=== PATIENT | male | born 1985 | race Caucasian/White ===

== ENCOUNTER 2016-09-23 11:28 | Outpatient (CLI) ==
[2015-12-11 17:59] VITALS: BMI 32.5
== END 2016-09-23 11:29 | disposition home or self-care (01) ==
LOC: LAB 11:28
DX: Z52.001 Unspecified donor, stem cells (principal)
CPT/HCPCS: 36415

== ENCOUNTER 2018-03-16 07:33 | Outpatient (CLI) ==
[2015-12-11 17:59] VITALS: BMI 32.5
--- NOTE | 2018-03-16 09:24 | CT ---
EXAM: CT of the chest without contrast History: Lymphadenopathy. Comparison: CT abdomen pelvis 03/16/2018, neck CT 03/16/2018 Technique: Multiplanar CT images through the thorax were obtained without the administration of IV c ontrast Findings: Heart size is normal. No pericardial effusion. Great vessels are unremarkable. No axill jacky lymphadenopathy. No mediastinal lymphadenopathy. No hilar lymphadenopathy. No consolidation. No pleural fluid and no pneumothorax. No lung masses or lung nodules. For details in the upper abdomen, please see dedicated CT abdomen pelvis done on the same day. No ac elier osseous abnormalities. Impression: Unremarkable exam
--- NOTE | 2018-03-16 09:26 | CT ---
EXAM: CT Abdomen without contrast. CT Pelvis without contrast. HISTORY: Lymphadenopathy. Lower abdominal and groin pain. COMPARISON: None available. TECHNIQUE: Multiple axial images of the abdomen and pelvis were obtained without intravenous contras t. Images were reformatted in the sagittal and coronal plane. FINDINGS: Please note that evaluation of the abdominal and pelvic structures is limited due to lack of intravenous contrast. The lung bases are clear. No acute osseous abnormality identified. Gallbladder is absent. The liver, pancreas, spleen, adrenal glands, and kidneys demonstrate normal c ontour. No calcified renal stones or hydronephrosis identified. The bowel is normal in course and caliber without evidence for obstruction or inflammatory process. The appendix is normal. Urinary bladder is unremarkable. Phleboliths seen in the pelvis. No free f luid or free air identified. No lymphadenopathy identified within the limitations of noncontrast susy hnique. IMPRESSION: No acute abnormality within the abdomen or pelvis.
--- NOTE | 2018-03-16 09:32 | CT ---
EXAM: CT of the soft tissue neck without contrast History: Lymphadenopathy. Comparison: Chest CT 03/16/2018 Technique: Multiplanar CT images through the thorax were obtained without the administration of IV c ontrast Findings: The visualized intracranial contents demonstrate no grossly acute findings. Orbits are in tact. Mucosal thickening of the right frontal sinus and right maxillary sinus. Air-fluid levels see n within the right maxillary sinus. There is subcutaneous edema and soft tissue air involving the ri ght cheek adjacent to the maxillary sinus. Mastoid air cells are clear. No acute osseous abnormaliti es. Epiglottis is not thickened. Submandibular glands are not inflamed. Parotid glands are not inf lamed. No parotid masses. Evaluation for lymph nodes is limited due to the lack of IV contrast but no bulky lymphadenopathy is seen. There are several small scattered bilateral neck lymph nodes. Impression: 1. Unexpected finding: Subcutaneous edema and soft tissue air of the right cheek adjacent to the ma xillary sinus concerning for soft tissue infection. Cannot exclude the possibility of a fistula from the maxillary sinus. 2. Right frontal and right maxillary sinusitis. 3. Evaluation for lymph nodes is limited due to lack of IV contrast but no grossly enlarged lymph no miguel are identified.
== END 2018-03-16 07:34 | disposition home or self-care (01) ==
LOC: RAD 07:33
PROVIDERS: ATTEND Family Medicine
DX: R59.1 Generalized enlarged lymph nodes (principal)
CPT/HCPCS: 36415; 82565